=== PATIENT | female | born 1990 ===

== ENCOUNTER → 2020-11-14 14:37 | Outpatient (BNVA) | payer MEDICAID, SELFPAY | PROVIDERS: PCP Internal Medicine; Visit Provider Nurse Practitioner Family | DX: M79.18 Myalgia, other site (principal) | CPT/HCPCS: 99202 ==

== ENCOUNTER → 2020-12-19 13:04 | Outpatient (BNVA) | payer MEDICAID, SELFPAY | PROVIDERS: PCP Internal Medicine; Visit Provider Nurse Practitioner Family | DX: M79.18 Myalgia, other site (principal); M51.24 Other intervertebral disc displacement, thoracic region | CPT/HCPCS: 99212 ==

== ENCOUNTER 2021-02-03 07:34 | Outpatient (REF) | payer MEDICAID, SELFPAY ==
--- NOTE | ~2021-02-03 | FL_ITS ---
EXAMINATION: XR FLUOROSCOPY WITH IMAGES CLINICAL INFORMATION: M54.6 - Pain in thoracic spine COMPARISON: None. TECHNIQUE: Fluoroscopy performed by Trish Neri NP. Fluoroscopy time: 0.5 minutes DAP: 2.03 Gycm2 Images: 5 FINDINGS: There are 2 spinal needles overlying 2 adjacent left costal vertebral junctions. There are also 2 spinal needles overlying 2 right costovertebral junctions. The spine is not imaged in its entirety in order to assess specific thoracic levels. There is vertical paravertebral contrast from each site. No vascular communication. FL/FL guidance in treatment room IMPRESSION: Fluoroscopy for pain management procedures.
== END 2021-02-03 07:35 | disposition home or self-care (01) ==
LOC: HO.RADIR 07:34
PROVIDERS: Visit Provider Anesthesiology
DX: M51.24 Other intervertebral disc displacement, thoracic region (principal); M79.18 Myalgia, other site; Z79.899 Other long term (current) drug therapy
CPT/HCPCS: 64490; 64491; 64492; Q9967

== ENCOUNTER → 2021-02-09 13:35 | Outpatient (BNVA) | payer MEDICAID, SELFPAY | PROVIDERS: PCP Internal Medicine; Visit Provider Nurse Practitioner Family ==

== ENCOUNTER → 2021-03-06 11:51 | Outpatient (BNVA) | payer MEDICAID, SELFPAY | PROVIDERS: PCP Internal Medicine; Visit Provider Nurse Practitioner Family ==

== ENCOUNTER → 2021-03-13 14:45 | Outpatient (BNVA) | payer MEDICAID, SELFPAY | PROVIDERS: PCP Internal Medicine; Visit Provider Nurse Practitioner Family | DX: M79.18 Myalgia, other site (principal); G89.29 Other chronic pain; M51.24 Other intervertebral disc displacement, thoracic region; Z79.899 Other long term (current) drug therapy | CPT/HCPCS: 20552; 20553; 99212; J3300 ==

== ENCOUNTER → 2021-03-27 11:32 | Outpatient (BNVA) | payer MEDICAID, SELFPAY | PROVIDERS: PCP Internal Medicine; Visit Provider Nurse Practitioner Family ==

== ENCOUNTER → 2021-04-20 14:44 | Outpatient (BNVA) | payer MEDICAID, SELFPAY | PROVIDERS: PCP Internal Medicine; Visit Provider Anesthesiology | DX: M79.18 Myalgia, other site (principal); M54.6 Pain in thoracic spine; M51.24 Other intervertebral disc displacement, thoracic region; G89.29 Other chronic pain | CPT/HCPCS: 99212 ==